=== PATIENT | female | born 1980 | race Hispanic/Latino ===

== ENCOUNTER 2025-02-03 23:43 | Emergency (ER) | payer SELFPAY ==
[~2025-02-03] VITALS: Ht 160 cm; Wt 77.1 kg
[2025-02-04] MEDS: SODIUM CHLORIDE 0.9% 1000ML 1,000 ML IV ONE ×2 (00:25→01:10)
[2025-02-04 00:26] LABS: BASOPHILS % 0.3 % (0.0-1.0); EOSINOPHILS % 0.1 % (0.0-6.0); LYMPHOCYTES % 6.6 % (18.0-39.1); MONOCYTES % 0.8 % (4.4-11.3); NEUTROPHILS % 92.1 % (38.7-80.0); RED CELL DISTRIBUTION WIDTH 15.9 % (11.7-14.4)
[2025-02-04] MEDS: ACETAMINOPHEN 1000 MG/100 ML IV ONE (00:26)
[2025-02-04] MEDS: ONDANSETRON HCL INJ 2MG/ML 2ML 2 MG/ML VIAL IV STA (00:26)
[2025-02-04 00:34] LABS: INR 1.06
[2025-02-04 00:45] LABS: EST GLOMERULAR FILTRATION RATE 105 ML/MIN (>=60)
[2025-02-04 01:35] LABS: CORONAVIRUS COVID-19 AG POSITIVE (NEGATIVE)
[2025-02-04 01:40] LABS: LEUKOCYTE ESTERASE ,URINE SMALL (NEGATIVE); PROTEIN,URINE DIPSTICK 2+ (NEGATIVE); URINE UROBILINOGEN 0.2 mg/dL (0.2 - 1)
[2025-02-04 02:25] LABS: WBC,URINE (MAN) >50 /HPF (0-5)
[2025-02-04 02:26] LABS: EPITHELIAL CELLS,URINE MODERATE /LPF
[2025-02-04 02:45] VITALS: PULSE 107; RESP 22; TEMP 99.6; O2SAT 99
[2025-02-04] MEDS ORDERED: CEFDINIR300 MG PO (02:52)
[2025-02-04] MEDS ORDERED: ONDANSETRON ODT4 MG SL (02:53)
== END 2025-02-04 03:06 | disposition home or self-care (01) ==
LOC: ER 02-04 00:05
DX: U07.1 COVID-19 (principal); N39.0 Urinary tract infection, site not specified; R50.9 Fever, unspecified; E87.20 Acidosis, unspecified; R11.2 Nausea with vomiting, unspecified
CPT/HCPCS: 36415; 71045; 80053; 81001; 82550; 83605; 84484; 85025; 85610; 85730; 87040; 87071; 87086; 87186; 87205; 87428; 93005; 99284; J0131; J0696; J2405; J7030